=== PATIENT | female | born 1945 | race Caucasian/White ===

== ENCOUNTER 2016-10-15 11:10 | Emergency (ER) | payer OTHER ==
[2016-10-15] MEDS ORDERED: DILAUDID IV ONE (11:19)
[2016-10-15] MEDS ORDERED: PHENERGAN IV ONE (11:19)
[2016-10-15] MEDS ORDERED: SODIUM CHLORIDE 0.9% INJ ONE (11:19)
--- NOTE | 2016-10-15 11:35 | PROVIDER DOCUMENTATION ---
HPI-Musculoskeletal Pain/Inj - GENERAL Chief Complaint: Fall Stated Complaint: fall with arm deformity Time Seen by Provider: 10/15/16 11:12 Source: patient, family, EMS - HX OF PRESENT ILLNESS-MUSKULOSKELTAL Nature of Presenting Problem: Reports to er by ems with cc of fall and complaints of left forearm injury. Obvious deformity noted to left wrist. Pt reports she was walking with walker became dizzy and fell from standing position. EMS splinted left forearm. pt has lung cancer and isn't undergoing any treatment pt at bedside reports if at all possible pt is not to undergo any kind of surgery. Hospice at bedside reports from lung cancer stand point doesnt want any abg's done or breathing treatments. Quality of Pain: reports: aching Severity in ED: severe Onset/Duration: just prior to arrival Timing: still present Modifying Factors: improves with: immobilization Any recent injury?: Yes Locality of Occurance: Home Similar Symptoms Previously?: No Recently seen or treated by another doctor?: No Review of Systems - Adult - REVIEW OF SYSTEMS - ADULT Constitutional: denies: chills, fever, fatique Eyes: reports: no symptoms reported Ears, Nose, Mouth & Throat: denies: ear pain, sinus problem, throat pain Cardiovascular: reports: no symptoms reported Respiratory: denies: cough, shortness of breath, wheezing Gastrointestinal: denies: abdominal pain, diarrhea, nausea, vomiting Genitourinary: reports: no symptoms reported Musculoskeletal: reports: see HPI, bone pain, joint pain, joint swelling. denies: back pain, frequent leg cramps, muscle aches, muscle weakness, neck pain Integumentary: reports: no symptoms reported Neurological: reports: no symptoms reported Psychiatric: reports: no symptoms reported Endocrine: reports: no symptoms reported Hematologic/Lymphatic: reports: no symptoms reported Allergic/Immunologic: reports: no symptoms reported All Other Systems: Reviewed and Negative Past History - Adult - PAST MEDICAL HISTORY-ADULT Review of Records: reports: Nursing Assessment Review, Medications Reviewed Major Childhood Illnesses: reports: denies history Cardiovascular: reports: denies history Respiratory: reports: asthma, COPD, cancer Gastrointestinal: reports: denies history Obstetrical/Gynecological: reports: denies history Genitourinary: reports: denies history Musculoskeletal: reports: denies history Neurological: reports: denies history Psychiatric: reports: anxiety, depression Endocrine/Immune: reports: denies history Other Conditions: reports: denies history - PRIOR SURGERIES/PROCEDURES Surgical/Procedure History: reports: hysterectomy, other (bladder tack) - IMMUNIZATION STATUS Childhood Immunizations: See Nurse Assessment Flu Vaccine: See Nurse Assessment - FAMILY HISTORY Family History: reviewed, not pertinent - SOCIAL HISTORY Smoking: denies Substance Use: none/never Physical Exam-Injury Related - Physical Exam-Injury Related Initial Vital Signs Reviewed: Yes General Appearance: appears well, alert, mild distress Immobilization?: negative: backboard, C-collar Eyes: PERRL/EOMI Neck: non-tender, full range of motion, supple, normal inspection Respiratory: chest non-tender, lungs clear, normal breath sounds, no pleuratic chest pain, no respiratory distress Cardiovascular: tachycardia Peripheral Pulses: radial (R): 2+, radial (L): 2+, dorsalis-pedis (R): 2+, dorsalis-pedis (L): 2+ Extremity: non-tender, deformity (left forearm with swelling; superficial abrasion to left forearm ; skin tear on anterior left hand), swelling (left wrist), tenderness (ttp left forearm) Integumentary: normal color Psych/Mental Status: normal mood/affect, normal thought content, normal thought process, oriented x 3 - Glascow Coma Score Best Eye Response (Tristan): (4) open spontaneously Best Verbal Response (Tristan): (5) oriented Best Motor Response (Romulus): (6) obeys commands Tristan Total: 15 Progress - PLAN OF CARE/RESULTS Progress/Plan/Lab Results: Orders Category Date Time Status FOREARM-LEFT [RAD] Stat Exams 10/15/16 11:11 Taken Hydromorphone [Dilaudid] Med 10/15/16 11:19 Discontinued 1 mg IV NOW ONE Promethazine [Phenergan] Med 10/15/16 11:19 Discontinued 12.5 mg IV NOW ONE Sodium Chloride 0.9% Med 10/15/16 11:19 Discontinued 10 ml INJ NOW ONE Vital Signs - 24 hr 10/15/16 11:12 Pulse Rate 108 H Respiratory 20 Rate Blood Pressure 120/85 O2 Sat by Pulse 89 L Oximetry Family requesting that pt just see ortho so pt doesn't have to have multiple procedures. 1205 Dr.Daigre couch Procedure Notes: at 1230 reduction of left distal radial ulna fx dislocation was done. MD Flores did procedure with assistance of CECILIO Vargas, Med student Perez Ortiz, and Nursing Graduate Vilma Petersen. area cleaned with Hibiclenc pt hooked up on monitor to monitor vitals pt is resting due to dilauded given prior to procedure. Hematoma block 12cc of lidocaine injected to left wrist; 1235 reduction successful good pulse before and after reduction. Pt is able to wiggle fingers now. Xray will be done to confirm reduction. Pt left forearm/wrist will be splinted. Per radiologist post reduction xray of left forearm was unsuccessful impression was posterolateral displacment fo distal radial fragments Back to bedside to discuss with family ordered xray and tetanus shot Orders Category Date Time Status FOREARM-LEFT [RAD] Stat Exams 10/15/16 11:11 Taken FOREARM-LEFT [RAD] Stat Exams 10/15/16 12:33 Ordered Diph,Pertuss(Acell),Tet Vac/Pf [Boostrix Vaccine] Med 10/15/16 12:35 Discontinued 0.5 ml IM .ONCE ONE Hydromorphone [Dilaudid] Med 10/15/16 11:19 Discontinued 1 mg IV NOW ONE Lidocaine 1% [Xylocaine 1%] Med 10/15/16 11:56 Discontinued 20 ml .ROUTE .STK-MED ONE Lidocaine 1% [Xylocaine 1%] Med 10/15/16 11:47 Discontinued 50 ml INJ NOW ONE Promethazine [Phenergan] Med 10/15/16 11:19 Discontinued 12.5 mg IV NOW ONE Sodium Chloride 0.9% Med 10/15/16 11:19 Discontinued 10 ml INJ NOW ONE - XRAY 1 XRAY: Left XRAY Study: Forearm Impression: Abnormal (left distal radius and ulna displaced and fx (ER MD Flores)) 2 XRAY: Left XRAY Study: Forearm Impression: Abnormal (posterolateral displacement of distal radial fragments) - CONSULTS/PCP/HOSPITALIST Notification #1 *Consult/PCP/Hospitalist*: Dr. Norman Time Discussed: 12:18 Reason/Comments: Do reduction and have follow in office Tuesday Consult Disposition: F/U in office Procedures - SPLINTING Left Upper Extremity Other Location: left forearm Pre-Procedure Neurovascular Exam: Intact Splint Application (Hand-Made): Sugar-Tong Applied By: ED Nurse Post Procedure Neurovascular Exam: Intact Departure - Departure Time of Disposition Order: 12:18 DIAGNOSIS: Closed fracture distal radius and ulna Qualifiers: Encounter type: initial encounter Laterality: left Qualified Code(s): S52.502A - Unspecified fracture of the lower end of left radius, initial encounter for closed fracture Disposition: HOME 01 Certified Medical Emergency: Emergent Condition: Stable Additional Instructions: Follow up with ORtho next tuesday ED Follow Up Instructions: You have been treated by a care provider in the Emergency Department. These instructions are being provided to you so you can have an understanding of how to care for yourself upon discharge. Upon discharge from the Emergency Department, you are responsible for making arrangements for follow-up care by a physician of your choice. Take all prescribed medications as directed. Return to the Emergency Department immediately for any new or worsening symptoms. You may call the Physician Referral phone number at [phone] to obtain a list of Physicians who are taking new patients. Referrals: Pieter Washburn MD [Primary Care Provider] - Azael Norman MD [STAFF PHYSICIAN] - Attestation - Scribe Verification/Attestation Scribe:: Lamont Sanches Acting as Scribe for:: Joseph Flores Scribe documention review:: This chart was documented by a scribe and accurately reflects the service the provider performed and the decisions made by the provider.
[2016-10-15] MEDS ORDERED: XYLOCAINE 1% INJ ONE (11:47)
[2016-10-15] MEDS ORDERED: XYLOCAINE 1% ONE (11:56)
[2016-10-15] MEDS ORDERED: BOOSTRIX VACCINE IM ONE (12:35)
--- NOTE | 2016-10-15 13:12 | Diag Imaging Result Document ---
PROCEDURE NAME: FOREARM-LEFT - 10/15/2016 PLAIN RADIOGRAPH OF THE LEFT FOREARM 2 VIEWS: COMPARISON: None available. FINDINGS: There is a fracture involving the distal metaphysis of the radius with comminution. There is also probably avulsion of the ulnar styloid. There is significant volar and lateral displacement of the shafts of the distal radius and ulna with respect to wrist, especially the distal radius. There is marked soft tissue edema around the wrist. IMPRESSION: Fracture of the distal radius and likely avulsion of the ulnar styloid with significant displacement as described.
--- NOTE | 2016-10-15 13:27 | Diag Imaging Result Document ---
PROCEDURE NAME: FOREARM-LEFT - 10/15/2016 LEFT FOREARM 2 VIEWS: FINDINGS: There is still considerable displacement of the distal radial fragments laterally with respect to the proximal radius. There is a fracture of the ulnar styloid. The distal radial fragments are also displaced somewhat posteriorly. IMPRESSION: 1. Comminuted distal radial fracture and ulnar styloid fracture. 2. Persistent displacement as described.
[2016-10-15] MEDS ORDERED: NORCO-7.5 PO ONE (15:14)
[2016-10-15 16:23] VITALS: BP 135/77
== END 2016-10-15 16:23 | disposition home or self-care (01) ==
LOC: EDBD → ED 11:10
DX: S52.592A Other fractures of lower end of left radius, initial encounter for closed fracture (principal); S52.612A Displaced fracture of left ulna styloid process, initial encounter for closed fracture; M79.632 Pain in left forearm; M25.432 Effusion, left wrist; M21.932 Unspecified acquired deformity of left forearm; R00.0 Tachycardia, unspecified; R42 Dizziness and giddiness; C34.90 Malignant neoplasm of unspecified part of unspecified bronchus or lung; J44.9 Chronic obstructive pulmonary disease, unspecified; S50.812A Abrasion of left forearm, initial encounter; S61.412A Laceration without foreign body of left hand, initial encounter; Z23 Encounter for immunization; W18.30XA Fall on same level, unspecified, initial encounter
CPT/HCPCS: 90715; J1170; J2550